=== PATIENT | female | born 1990 | race Caucasian/White ===

== ENCOUNTER → 2016-11-24 | Outpatient (REF) ==
[~2016-11-24] MED LIST: IBU800 M1 PO; PERCOCET 325 MG1 TA2 PO
== END ==
LOC: WSOH 16:00
DX: Z02.89 Encounter for other administrative examinations (principal)

== ENCOUNTER → 2016-12-27 | Outpatient (REF) | LOC: WSOH 10:56 | DX: Z11.1 Encounter for screening for respiratory tuberculosis (principal) ==

== ENCOUNTER → 2017-04-20 | Outpatient (REF) | LOC: ZLAB.WCH 18:07 | DX: Z01.89 Encounter for other specified special examinations (principal) ==

== ENCOUNTER → 2020-06-19 | Outpatient (CLI) | payer OTHER | LOC: MC.RAD 08:19 | DX: N63.20 Unspecified lump in the left breast, unspecified quadrant (principal) ==

== ENCOUNTER → 2020-07-24 | Outpatient (CLI) | payer OTHER | LOC: DIA.ED 09:42 | DX: O24.419 Gestational diabetes mellitus in pregnancy, unspecified control (principal) | CPT/HCPCS: G0108 ==

== ENCOUNTER → 2020-09-05 | Outpatient (REF) | LOC: COL.CARD 13:02 | DX: Z01.810 Encounter for preprocedural cardiovascular examination (principal) ==

== ENCOUNTER 2020-09-22 08:18 | Inpatient (IN) | payer OTHER ==
[~2020-09-22] VITALS: Ht 160 cm; Wt 107.7 kg
[2020-09-22] VITALS (25 sets, daily range): BP systolic 93–144; BP diastolic 60–93; PULSE 73–111; TEMP 97.9–98.2
--- NOTE | 2020-09-22 08:15 | NUR ---
Patient arrives via wheelchair with complaints of SROM at 0700 and cramping that is worsening. Patient reports normal movement, denies vaginal bleeding. Changes into gown, EFM explained and placed. VS obtained. Amniotrace positive, SVE 3/50/-3 with moderate amount of clear fluid noted. Pericare given and patient repositioned WL. See physician notification. Admit orders recieved and patient updated on plan of care. Patient desires epidural but is not ready at this time. 0845- Report to Richard Salazar RN who assumes care of patient at this time.
[2020-09-22 09:45] LABS: BASO % 0.3 % (0.0-2.0); EOS # 0.1 (0.0-0.7); EOS % 0.9 % (0-4.0); GRAN # 6.6 (1.4-6.5); GRAN % 73.4 % (42.2-75.2); LYMPH # 1.6 (1.2-3.4); LYMPH % 18.2 % (20.0-51.0); MEAN CELL VOLUME 91 fl (80.0-100.0); MEAN CORPUSCULAR HEMOGLOBIN 30 pg (27.0-31.0); MEAN CORPUSCULAR HGB CONC 33 g/dl (33.0-37.0); MONO # 0.6 (0.1-0.6); MONO % 6.1 % (1.7-9.3); PLATELET COUNT 215 K/mm3 (130-400); RED BLOOD COUNT 3.98 M/mm3 (4.10-5.30); REDCELL DISTRIBUTION WIDTH-CV 13.9 % (11.5-14.5)
[2020-09-22 09:46] LABS: HEMATOCRIT 36.1 % (37.0-47.0)
--- NOTE | 2020-09-22 13:21 | NUR ---
MONITORING: PT. UP WALKING/USING BIRHTING BALL FROM [id number]. PT. BACK ON MONITOR AT 1139.
--- NOTE | 2020-09-22 17:29 | NUR ---
DELIVERY NOTE: PT. COMPLETE +[address] FARRAR [address]ED. DR. FARRAR AT BS AT 1626 FOR DELIVERY. NURSERY NURSE AT BS [id number]. BED BROKEN DOWN, BECKER CATHETER REMOVED, AND DR. FARRAR AT PERINEUM. PT. PUSHED WITH NEXT CONTRACTION. VIABLE FEMALE BORN AT 1632 VIA SPONTANEOUS VAGINAL DELIVERY. PLACENTA SPONTANEOUSLY DELIVERED AT 1636. CARE OVER TO [facility] NURSE FOR INFANT. PP PITOCIN STARTED AT THAT TIME. DR. FARRAR REMAINS AT BS FOR LACERATION REPAIR. PT. EDUCATED ON RECOVERY PERIOD AND VERBALIZES UNDERSTANDING. NO QUESTIONS AT THIS TIME. PT. ENTERS RECOVERY PERIOD IN STABLE CONDITION.
[2020-09-23] VITALS: BP 110/72; PULSE 92; TEMP 98
[2020-09-23 04:45] VITALS: BP 101/61; PULSE 76; TEMP 97.8
[2020-09-23 07:30] VITALS: BP 108/75; PULSE 83; TEMP 98.5
--- NOTE | 2020-09-23 10:39 | NUR ---
Initial visit; Parents thanked Private Detective for offering congratulations and God's blessings for the of their daughter. Private Detective thanked family for choosing [facility].
[2020-09-23] MEDS ORDERED: IBU800 M1 PO (12:30)
[2020-09-23] MEDS ORDERED: PERCOCET 325 MG1 TA2 PO (12:31)
[2020-09-23 17:07] VITALS: BP 108/72; PULSE 80; TEMP 98.5
--- NOTE | 2020-09-23 19:20 | NUR ---
Reviewed discharge instructions with patient and spouse. Informed patient that she will need to call office to schedule her follow up appointment. Pt verbalized understanding of discharge plan.
== END 2020-09-23 19:20 | disposition home or self-care (01) | DRG 806 ==
LOC: LDRO 08:18 → LDR 08:30 → OB 08:30
PROVIDERS: Obstetrics & Gynecology; ADMIT Student in an Organized Health Care Education/Training Program
PROC: 10E0XZZ Delivery of Products of Conception, External Approach (ICD-10-PCS; principal; 2020-09-22)
PROC: 0KQM0ZZ Repair Perineum Muscle, Open Approach (ICD-10-PCS; 2020-09-22)
DX: O24.420 Gestational diabetes mellitus in childbirth, diet controlled (principal); O99.354 Diseases of the nervous system complicating childbirth; Z37.0 Single live birth; G43.909 Migraine, unspecified, not intractable, without status migrainosus; O99.214 Obesity complicating childbirth; E66.9 Obesity, unspecified; O99.344 Other mental disorders complicating childbirth; F32.9 Major depressive disorder, single episode, unspecified; O99.62 Diseases of the digestive system complicating childbirth; K21.9 Gastro-esophageal reflux disease without esophagitis; O70.1 Second degree perineal laceration during delivery; Z3A.38 38 weeks gestation of pregnancy
CPT/HCPCS: J2590; J7120

== ENCOUNTER 2022-02-03 14:51 | Inpatient (IN) | payer OTHER ==
[~2022-02-03] VITALS: Ht 160 cm; Wt 113.2 kg
[2022-02-07] VITALS (37 sets, daily range): BP systolic 109–164; BP diastolic 58–97; PULSE 71–135; TEMP 97.8–98.8
--- NOTE | 2022-02-07 06:10 | NUR ---
PT AMBULATORY TO UNIT FOR SCHEDULE IOL. REPORTS IRREGULAR MILD CONTRACTIONS AND POSTIIVE MOVEMENT. DENIES LOF. PLACED ON EFM/TOCO. CATEGORY 1 EFM TRACING UPON ARRIVAL. WILL CONTINUE WITH IOL PER POC.
[2022-02-07] MEDS ORDERED: HUMULIN N 10100 U/ML SQ (07:27)
[2022-02-07 08:12] LABS: BASO % 0.4 % (0.0-2.0); EOS % 0.8 % (0.0-4.0); GRAN # 3.7 K/mm3 (1.4-6.5); GRAN % 73.8 % (42.2-75.2); HEMATOCRIT 53.7 % (37.0-47.0); HEMOGLOBIN 18.2 g/dl (12.5-16.0); LYMPH # 0.9 K/mm3 (1.2-3.4); LYMPH % 18.4 % (20.0-51.0); MEAN CELL VOLUME 89 fl (80.0-100.0); MEAN CORPUSCULAR HEMOGLOBIN 30 pg (27-31); MEAN CORPUSCULAR HGB CONC 34 g/dl (33.0-37.0); MEAN PLATELET VOLUME 10.3 fl (7.4-10.4); MONO # 0.3 K/mm3 (0.1-0.6); MONO % 5.6 % (1.7-9.3); PLATELET COUNT 136 K/mm3 (130-400); RED BLOOD COUNT 6.05 M/mm3 (4.10-5.30); REDCELL DISTRIBUTION WIDTH-CV 13.7 % (11.5-14.5)
[2022-02-07 08:44] LABS: BILIRUBIN,TOTAL 0.4 mg/dL (0.2-1.2); CREATININE, serum 0.64 mg/dL (0.57-1.11); POTASSIUM 3.5 mmol/L (3.5-4.5); TOTAL PROTEIN 6.8 gm/dL (6.2-8.1)
--- NOTE | 2022-02-07 08:55 | NUR ---
BEDSIDE ULTRASOUND PER . VERTEX PRESENTATION CONFIRMED.
--- NOTE | 2022-02-07 08:56 | NUR ---
AT BEDSIDE. SVE /-2. CATEGORY 1 EFM TRACING. IRREGULAR MILD CONTRACTIONS AT THIS TIME. PITOCING INFUSING PER PROTOCOL. 0856: AROM WITH CLEAR FLUID PER . PT TOLERATED PROCEDURE WELL.
--- NOTE | 2022-02-07 14:31 | NUR ---
1412: SVE COMPLETE, PT FEELING URGE TO PUSH. NOTIFIED AT THIS TIME. 1431: OF VIABLE MALE AT THIS TIME PER . INFANT PLACED ON MATERNAL ABDOMEN. CORD CLAMPED X2 AND CUT BY FOB. TRUE KNOT NOTED IN CORD. CARE OF ASSUMED BY VAISHALI URRUTIA. 1435: OF PLACENTA. PITOCIN BOLUS INFUSING PER PROTOCOL. BEGINS REPAIR OF SECOND DEGREE LACERATION. MODERATE LOCHIA WITH FUNDAL MASSAGE. 1505: LOCHIA REMAINS SMALL. WITH INTERMITTENT FREE FLOW. NO CLOTS NOTED. FUNDUS FIRM AT UMBILICUS. IM METHERGINE ADMINISTERED AT THIS TIME PER VORB. WILL CONTINUE TO MONITOR CLOSELY.
[2022-02-08 02:00] VITALS: BP 112/80; PULSE 73; TEMP 98
[2022-02-08 05:00] VITALS: BP 119/70; PULSE 80; TEMP 97.8
[2022-02-08 06:59] LABS: HEMATOCRIT 32.7 % (37.0-47.0)
[2022-02-08 07:00] LABS: HEMOGLOBIN 10.7 g/dl (12.5-16.0)
[2022-02-08] MEDS ORDERED: IBU600 MG PO (08:48)
[2022-02-08 08:56] VITALS: BP 126/83; PULSE 91; TEMP 98
--- NOTE | 2022-02-08 09:14 | NUR ---
Initial visit; Parents thanked Style Advisor for offering congratulations and God's blessings for the of their son. Style Advisor thanked them for choosing [facility].
--- NOTE | 2022-02-08 15:53 | NUR ---
PT AMBULATED OFF UNIT WITH BABY AND SPOUSE. WALKED OUT BY THIS RN AT 1540 . CAR SEAT CHECKED AND PT VERBALIZED UNDERSTANDING OF DC ISNTRUCTIONS.
== END 2022-02-08 15:40 | disposition home or self-care (01) | DRG 806 ==
LOC: OB 14:51 → LDR 02-07 06:05 → OB 02-07 06:05
PROVIDERS: Obstetrics & Gynecology; ADMIT Student in an Organized Health Care Education/Training Program
PROC: 10E0XZZ Delivery of Products of Conception, External Approach (ICD-10-PCS; principal; 2022-02-07)
PROC: 0KQM0ZZ Repair Perineum Muscle, Open Approach (ICD-10-PCS; 2022-02-07)
PROC: 10907ZC Drainage of Amniotic Fluid, Therapeutic from Products of Conception, Via Natural or Artificial Opening (ICD-10-PCS; 2022-02-07)
PROC: 3E033VJ Introduction of Other Hormone into Peripheral Vein, Percutaneous Approach (ICD-10-PCS; 2022-02-07)
DX: O24.425 Gestational diabetes mellitus in childbirth, controlled by oral hypoglycemic drugs (principal); O99.12 Other diseases of the blood and blood-forming organs and certain disorders involving the immune mechanism complicating childbirth; Z37.0 Single live birth; Z3A.37 37 weeks gestation of pregnancy; K21.9 Gastro-esophageal reflux disease without esophagitis; O99.344 Other mental disorders complicating childbirth; F32.A Depression, unspecified; O99.214 Obesity complicating childbirth; E66.9 Obesity, unspecified; O99.62 Diseases of the digestive system complicating childbirth; D75.1 Secondary polycythemia; O69.2XX0 Labor and delivery complicated by other cord entanglement, with compression, not applicable or unspecified; O70.1 Second degree perineal laceration during delivery; Z53.29 Procedure and treatment not carried out because of patient's decision for other reasons
CPT/HCPCS: J2210; J2590; J7120